=== PATIENT | female | born 1975 | race Caucasian/White ===

== ENCOUNTER 2021-08-12 07:28 | Inpatient (IN) | payer BC ==
[~2021-08-12 07:28] MED LIST: Lactated Ringers 1,000 ML IV SCH; Lidocaine 1%/Sod Bicarbonate in NS 8.4% 1 ML Syringe IDERM PRN; Sodium Chloride 0.9% 10 ML Syringe FLUSH PRN
--- NOTE | 2021-08-12 08:25 | PCM.PREANE ---
Preanesthetic Assessment - Anesthesia/Transfusion/Family Hx Anesthesia History: Prior Anesthesia Without Reaction Family History of Anesthesia Reaction: No Transfusion History: No Prior Transfusion(s) Intubation History: Unknown - Review of Systems General: No Symptoms Pulmonary: No Symptoms Cardiovascular: No Symptoms Gastrointestinal: No Symptoms Neurological: No Symptoms Other: Reports: None - Physical Assessment NPO Status Date: 08/11/21 NPO Status Time: 21:00 Vital Signs: Last Vital Signs Temp 36.7 C 08/12/21 07:35 Pulse 76 08/12/21 07:35 Resp 16 08/12/21 07:35 BP 131/74 08/12/21 07:35 Pulse Ox 96 08/12/21 07:35 Height: 1.55 m Weight: 101 kg ASA Class: 2 Mental Status: Alert & Oriented x3 Airway Class: Mallampati = 1 Dentition: Reports: Normal Dentition ROM/Head Extension: Full Lungs: Clear to Auscultation, Normal Respiratory Effort Cardiovascular: Regular Rate, Regular Rhythm, Other (EKG 08/12/21 SR 72) - Allergies Allergies/Adverse Reactions: Allergies Allergy/AdvReac Type Severity Reaction Status Date / Time No Known Allergies Allergy Verified 08/11/21 12:27 - Acknowledgements Anesthesia Type Planned: Spinal Pt an Appropriate Candidate for the Planned Anesthesia: Yes Alternatives and Risks of Anesthesia Discussed w Pt/Guardian: Yes Pt/Guardian Understands and Agrees with Anesthesia Plan: Yes PreAnesthesia Questionnaire HEENT History: Reports: None Cardiovascular History: Reports: High Cholesterol, Hypertension Respiratory History: Reports: None Gastrointestinal History: Reports: GERD, Other (See Below) Other Gastrointestinal History: gastric ulcer, LLQ pain Genitourinary History: Reports: Other (See Below) Other Genitourinary History: proteinuria Other OB/BYN History: enlarged uterus, cervicalgia, dysmenorrhea, irregular menses, menorrhagia, nipple discharge, uterine leiomyoma, cervical polyp, breast lump, vaginitis Musculoskeletal History: Reports: None, Arthritis Neurological History: Reports: Other (See Below) Other Neuro History: arm radiculopathy Psychiatric History: Reports: Anxiety Endocrine/Metabolic History: Reports: Other (See Below) Other Endocrine/Metabolic History: hirsutism, hair loss, thyroid nodule Hematologic History: Reports: Anemia Immunologic History: Reports: None Oncologic (Cancer) History: Reports: None Dermatologic History: Reports: Other (See Below) Other Dermatologic History: cold sores - Infectious Disease History Infectious Disease History: Reports: None - Past Surgical History Head Surgeries/Procedures: Reports: None HEENT Surgical History: Reports: Naso-Sinus Surgery Cardiovascular Surgical History: Reports: None Respiratory Surgical History: Reports: None GI Surgical History: Reports: Cholecystectomy Female Surgical History: Reports: None, Breast Reduction, Section Male Surgical History: Reports: None Endocrine Surgical History: Reports: None Musculoskeletal Surgical History: Reports: None Oncologic Surgical History: Reports: None Dermatological Surgical History: Reports: None - SUBSTANCE USE Tobacco Use Status *Q: Never Tobacco User Recreational Drug Use History: No - HOME MEDS Home Medications: Home Meds Losartan Potassium 50 mg PO DAILY 11/19/20 [History] hydroCHLOROthiazide [Hydrochlorothiazide] 25 mg PO DAILY 11/19/20 [History] valACYclovir HCl [Valtrex] 1,000 mg PO ASDIRECTED PRN 11/19/20 [History] Ascorbic Acid/Collagen Hydr [Collagen Plus Vit C] 1 cap PO DAILY 08/11/21 [History] Cholecalciferol (Vitamin D3) [Vitamin D3] 10,000 unit PO DAILY 08/11/21 [History] Multivitamin 1 tab PO DAILY 08/11/21 [History] - CURRENT (IN HOUSE) MEDS Current Meds: Current Medications Lactated Ringer's (Ringers, Lactated) 1,000 mls @ 125 mls/hr IV ASDIRECTED JOE Stop: 08/12/21 23:00 Lidocaine/Sodium Bicarbonate (Lidocaine 1%/Sod Bicarbonate In Ns 8.4% 1 Ml Syringe) 0.25 ml IDERM ONETIME PRN PRN Reason: Prior to IV Start Stop: 08/12/21 23:00 Sodium Chloride (Sodium Chloride 0.9% 10 Ml Syringe) 10 ml FLUSH ASDIRECTED PRN PRN Reason: Keep Vein Open Stop: 08/12/21 23:00
[2021-08-12] MEDS ORDERED: Propofol 200 MG/20 ML SDV ONE ×2 (08:35→10:05)
[2021-08-12] MEDS ORDERED: Lidocaine 1% 4 ML ONE (08:35)
[2021-08-12] MEDS ORDERED: Midazolam 1 MG/ML 2 ML SDV ONE ×2 (08:35→10:10)
[2021-08-12] MEDS ORDERED: fentaNYL 100 MCG/2 ML SDV ONE ×5 (08:36→12:04)
[2021-08-12] MEDS ORDERED: Bupivacaine 0.5% 30 ML SDV ONE (08:50)
[2021-08-12] MEDS ORDERED: Morphine PF 10 MG/10 ML SDV ONE (09:17)
[2021-08-12] MEDS ORDERED: ceFAZolin 1 GM Vial ONE (09:17)
[2021-08-12] MEDS ORDERED: Lactated Ringers 1,000 ML ONE (10:27)
[2021-08-12] MEDS ORDERED: Rocuronium 50 MG/5 ML Vial ONE (10:27)
--- NOTE | 2021-08-12 10:28 | PCM.SN.2 ---
#1 Interpretation EKG Date: 08/12/21 Time: 08:07 Rhythm: NSR Rate (Beats/Min): 72 Hoagland: Normal P-Wave: Present QRS: Normal ST-T: Normal QT: Normal
[2021-08-12] MEDS ORDERED: Ketorolac 30 MG/ML SDV ONE (10:50)
[2021-08-12] MEDS ORDERED: Ondansetron 4 MG/2 ML SDV ONE (10:50)
--- NOTE | 2021-08-12 11:41 | PCM.POSTAN ---
POST ANESTHESIA ASSESSMENT - MENTAL STATUS Mental Status: Alert, Oriented - VITAL SIGNS Vital Signs: Last Vital Signs Temp 36.7 C 08/12/21 11:32 Pulse 71 08/12/21 11:32 Resp 11 L 08/12/21 11:32 BP 149/77 H 08/12/21 11:32 Pulse Ox 92 L 08/12/21 11:32 - RESPIRATORY Respiratory Status: Respiratory Rate WNL, Airway Patent, O2 Saturation Stable, Supplemental Oxygen - CARDIOVASCULAR CV Status: Pulse Rate WNL, Blood Pressure Stable - GASTROINTESTINAL GI Status: No Symptoms - PAIN Pain Score: 0 - POST OP HYDRATION Hydration Status: Adequate & Stable
--- NOTE | 2021-08-12 11:45 | PCM.OPNOTE ---
- General Post-Op/Procedure Note Date of Surgery/Procedure: 08/12/21 Operative Procedure(s): Total abdominal hysterectomy with bilateral salpingectomy Findings: Uterus is found to be approximately 13 weeks size. Multiple fibroids present. Largest approximately 5 cm in diameter. Ovaries were normal and functional in appearance. Right ovary had 2 small cysts less than 1 cm each. Left ovary was unremarkable. Some adhesions noted in the posterior cul-de-sac. Some adhesions noted in the anterior cul-de-sac with bladder somewhat adhered to the anterior uterine segment of the uterus. No other abnormalities noted. Pre Op Diagnosis: 1. Menorrhagia. 2. Dysmenorrhea. 3. Uterine fibroids with uterine enlargement Post-Op Diagnosis: Same Anesthesia Technique: General ET Tube, Spinal Other Anesthesia Type: LocalMarcaine 0.5% - 20 mL Primary Surgeon: Nathan Mohan Secondary Surgeon: Keyshawn Alvarez Anesthesia Provider: Lupe Diaz Reason Nutrition Coordinator Was Necessary: Retraction, assistance, patient safety, quality of care. Pathology: Uterus, bilateral fallopian tubes in one specimen container. Fluid Replacement, Intraop: 1,700 Output, Urine Amount: 25 EBL in mLs: 100 Drain/Tube Comments:: Indwelling bladder catheter Complications: None Condition: Good Free Text/Narrative:: Surgery duration: 107 minutes Procedure: After adequate consent was obtained, the patient was taken to the operating room. She was given 2 g of Ancef IV for infection prophylaxis. She had sequential compression stockings placed for DVT prophylaxis. She initially underwent a spinal block with the addition of Duramorph. After she has prepped however this is noted to be less than adequate and she was feeling some discomfort therefore she is administered general endotracheal anesthesia. After the spinal anesthesia administration the patient was placed in a frog-leg position and was prepped vaginally and abdominally in the routine fashion. Bettencourt catheter was placed. Patient's abdomen was then opened through her old Pfannenstiel skin incision scar. Old scar was removed as it was somewhat hypert rophic. The incision was carried down through skin, subcutaneous and fascial layers. Moderately dense adhesions/scar tissue were apparent. Abdominal cavity was entered without problems. A sized Jt self-retaining retractor was placed. Findings of uterine fibroids, uterine enlargement, all right ovarian cyst and adhesions as described above were then noted. The uterus was elevated with a double-tooth tenaculum at the fundus. The adhesions on the back scissors were taken down using sharp and blunt dissection taking care to avoid injury to the bowel. Anterior cul-de-sac was noted to have bladder adherent to the front side of the uterus. The secondary to previous C-sections. Using a Enseal vessel closure device the right fallopian tube mesosalpinx was taken down. Ovaries were conserved per patient desire. The ovarian ligament, round ligament, broad ligament were then taken down in a routine stepwise fashion using the Enseal system. Same was done on patient's left side. The cardinal ligaments and taken down on each side to the level of the to the cervix. The angles of the vagina were then crossclamped using Veronique clamps 2 these pedicles were cut and were suture ligated with Veronique stitch of #1 Vicryl. A short running locked #1 Vicryl suture was then placed in the mid incision to complete the closure. Hemostasis was confirmed at this time. The pelvis was irrigated with fluid aspirated. 2 lap packs previously placed wound. The abdominal was then closed. The fascia was closed with a running suture of #1 PDS from angle to angle. The subcutaneous area was closed with 20 Monocryl suture first an interrupted layer. Subcuticular closure was then undertaken using 3-0 Monocryl suture on the Philip needle. The incision was further asked made with Prineo mesh. The patient was awakened from general endotracheal anesthesia and was discharged from the operating room in good condition.
[2021-08-12] MEDS ORDERED: Ondansetron 4 MG/2 ML SDV IVPUSH PRN ×2 (11:56→13:49)
[2021-08-12] MEDS ORDERED: HYDROmorphone 1 MG/ML Syringe ONE (12:05)
[2021-08-12] MEDS ORDERED: fentaNYL 100 MCG/2 ML SDV IVPUSH PRN (12:08)
[2021-08-12] MEDS ORDERED: HYDROmorphone 0.5 MG/0.5 ML Syringe IVPUSH PRN ×2 (12:08→13:49)
--- NOTE | 2021-08-12 13:24 | PCM48HPAN ---
Post Anesthesia Note - EVALUATION WITHIN 48HRS OF ANESTHETIC Vital Signs in Normal Range: Yes Patient Participated in Evaluation: Yes Respiratory Function Stable: Yes Airway Patent: Yes Cardiovascular Function Stable: Yes Hydration Status Stable: Yes Pain Control Satisfactory: Yes Nausea and Vomiting Control Satisfactory: Yes Mental Status Recovered: Yes Vital Signs: Last Vital Signs Temp 36.9 C 08/12/21 12:23 Pulse 58 L 08/12/21 12:23 Resp 16 08/12/21 12:23 BP 124/87 08/12/21 12:23 Pulse Ox 98 08/12/21 12:23
[2021-08-12] MEDS: Lactated Ringers 1,000 ML IV SCH ×2 (14:43→18:17)
[2021-08-12] MEDS: Acetaminophen/oxyCODONE 325-5 MG Tab PO PRN ×2 (15:24→19:54)
[2021-08-12] MEDS: Ibuprofen 800 MG Tab PO SCH (17:08)
[2021-08-12] MEDS ORDERED: Sodium Chloride 0.9% 1,000 ML ONE (18:06)
[2021-08-12] MEDS ORDERED: Sodium Chloride 0.9% 1,000 ML IV ONE (18:13)
[2021-08-12] MEDS: Docusate Sodium 100 MG Cap PO SCH (19:54)
[2021-08-13] MEDS: Docusate Sodium 100 MG Cap PO SCH ×2 (00:21→09:21)
[2021-08-13] MEDS: Ibuprofen 800 MG Tab PO SCH ×3 (00:53→17:02)
[2021-08-13] MEDS: Acetaminophen/oxyCODONE 325-5 MG Tab PO PRN ×3 (00:53→17:06)
[2021-08-13] MEDS ORDERED: Lactated Ringers 1,000 ML IV ONE (05:41)
[2021-08-13] MEDS ORDERED: Hydrochlorothiazide 25 MG Tab PO SCH (09:00)
[2021-08-13] MEDS ORDERED: Losartan 50 MG Tab PO SCH (09:00)
[2021-08-13] MEDS ORDERED: Albuterol/Ipratropium 3.0-0.5 MG/3 ML Neb Soln NEB ONE (14:37)
== END 2021-08-13 18:15 | disposition home or self-care (01) | DRG 519 ==
LOC: JD.MS 07:28 → JD.OB 10:25
PROVIDERS: ADMIT Obstetrics & Gynecology; ATTEND Obstetrics & Gynecology
PROC: 0UT90ZZ Resection of Uterus, Open Approach (ICD-10-PCS; principal; 2021-08-12)
PROC: 0UT70ZZ Resection of Bilateral Fallopian Tubes, Open Approach (ICD-10-PCS; 2021-08-12)
DX: D25.9 Leiomyoma of uterus, unspecified (principal); N94.6 Dysmenorrhea, unspecified; N92.0 Excessive and frequent menstruation with regular cycle; F41.9 Anxiety disorder, unspecified; G89.29 Other chronic pain; M54.59 Other low back pain; I10 Essential (primary) hypertension; Z98.51 Tubal ligation status; Z98.890 Other specified postprocedural states
CPT/HCPCS: 00840; 94640; A9270-GY; J0690; J1170; J1885; J2250; J2270; J2405; J2704; J2710; J3010; J3490; J7030; J7120; J7620-GY